=== PATIENT | female | born 1980 | race Two or more races ===

== ENCOUNTER 2018-11-16 20:14 | Emergency (ER) | payer SELFPAY ==
[~2018-11-16] VITALS: Ht 152.4 cm; Wt 68.0 kg
[2018-11-16] MEDS ORDERED: ACETAMINOPHEN 325MG TABLET PO STA (21:06)
[2018-11-16] MEDS ORDERED: IBUPROFEN 600MG TABLET PO STA (21:06)
[2018-11-16] MEDS ORDERED: SODIUM CHLORIDE 0.9% 1,000 ML IV ONE (21:06)
[2018-11-16 21:58] LABS: CHLORIDE 106 mEq/L (98-107)
[2018-11-16 22:00] LABS: BASOPHILS % 0.3 % (0.0-2.0); EOSINOPHILS % 1.4 % (0.0-5.0); HEMATOCRIT. 37.7 % (36.0-48.0); HEMOGLOBIN. 13.1 g/dL (12.0-16.0); LYMPHOCYTES % 16.6 % (20.0-50.0); MEAN CORPUSCULAR HEMOGLOBIN 30.5 pg (28.0-32.0); MEAN CORPUSCULAR VOLUME 87.9 fL (81.0-99.0); MEAN PLATELET VOLUME 8.6 fl (7.4-10.4); MONOCYTES % 6.7 % (2.0-8.0); PLATELET 255 x1000/uL (130-400); RED BLOOD CELL COUNT 4.29 mill/uL (4.2-5.4)
[2018-11-16 22:38] LABS: CLARITY URINE CLEAR (CLEAR); COLOR URINE YELLOW (YELLOW); KETONES URINE NEGATIVE (NEGATIVE); LEUKOCYTE ESTERASE URINE 2+ (NEGATIVE); NITRITE URINE NEGATIVE (NEGATIVE); OCCULT BLOOD URINE TRACE (NEGATIVE); PH URINE 6.5 (4.5-8.0); PROTEIN URINE NEGATIVE (NEGATIVE); SPECIFIC GRAVITY URINE 1.017 (1.005-1.030); UROBILINOGEN URINE 0.2 E.U./dL (0.2-1.0)
[2018-11-16 23:00] VITALS: BP 110/67
== END 2018-11-16 23:16 | disposition home or self-care (01) ==
LOC: ER 20:14
DX: S92.341A Displaced fracture of fourth metatarsal bone, right foot, initial encounter for closed fracture (principal); S92.331A Displaced fracture of third metatarsal bone, right foot, initial encounter for closed fracture; S92.321A Displaced fracture of second metatarsal bone, right foot, initial encounter for closed fracture; S50.311A Abrasion of right elbow, initial encounter; N39.0 Urinary tract infection, site not specified; Z98.890 Other specified postprocedural states; W10.8XXA Fall (on) (from) other stairs and steps, initial encounter; Y93.01 Activity, walking, marching and hiking; Y92.89 Other specified places as the place of occurrence of the external cause; Y99.8 Other external cause status
CPT/HCPCS: 29515; 36415; 73080; 73562; 73610; 73630; 80053; 81003; 81025; 85025; 93005; 96360; 96361; 99284; J7030; Z7610